=== PATIENT | male | born 1965 | race Two or more races ===

== ENCOUNTER 2022-12-26 00:29 | Inpatient (IN) | payer BC, MEDICAID ==
[~2022-12-26] VITALS: Ht 180.3 cm; Wt 102.0 kg
[2022-12-26 00:30] VITALS: PULSE 70; RESP 16; O2SAT 97
[2022-12-26 00:55] LABS: Basophils # (auto) 0.1 10 ^3/uL (0-0.2); Basophils % (auto) 0.9 % (0.0-2.0); Eosinophils # (auto) 0.4 10 ^3/uL (0-0.8); Eosinophils % (auto) 4.4 % (0.0-7.0); Hematocrit 48.7 % (41.0-53.0); Hemoglobin 16.7 g/dL (13.5-17.5); Lymphocytes # (auto) 4.2 10 ^3/uL (0.4-5.4); Lymphocytes % (auto) 47.9 % (10.0-50.0); Mean Corpuscular Hemoglobin 31.7 pg (28.0-32.0); Mean Corpuscular Hgb Conc. 34.3 g/dL (32.0-36.0); Mean Corpuscular Volume 92.3 fL (80.0-100.0); Monocytes # (auto) 0.6 10 ^3/uL (0-1.3); Monocytes % (auto) 7.3 % (0.0-12.0); Neutrophils # (auto) 3.4 10 ^3/uL (1.6-8.6); Neutrophils % (auto) 39.5 % (37.0-80.0); Nucleated Red Blood Cells % 0.1 %; Red Blood Cells 5.28 10^6/uL (4.5-5.90); Red Cell Distribution Width 13.3 % (11.8-14.3); White Blood Cell 8.7 10^3/uL (4.4-10.8)
[2022-12-26 01:09] LABS: INR 1.08 (0.9-1.15); Partial Thromboplastin Time 27.2 SEC (24.5-34.5); Prothrombin Time 11.3 sec (9.3-11.8)
[2022-12-26 01:56] LABS: Alanine Aminotransferase 27 U/L (7-40); Albumin 4.9 g/dL (3.2-4.8); Alkaline Phosphatase 106 U/L (46-116); Anion Gap 14 (5-15); Aspartate Aminotransferase 35 U/L (13-40); BUN/Creatinine Ratio 13.9 (10.0-20.0); Bilirubin, Total 0.9 mg/dL (0.2-1.0); Blood Urea Nitrogen 11 mg/dL (9-23); Calcium 9.4 mg/dL (8.7-10.4); Carbon Dioxide 19 mmol/L (20-30); Chloride 106 mmol/L (98-107); Glucose 108 mg/dL (74-106); Lipase 52 U/L (12-53); Magnesium 2.4 mg/dL (1.6-2.6); Potassium 3.8 mmol/L (3.5-5.1); Sodium 139 mmol/L (136-145); Total Protein 8.5 g/dL (5.7-8.2)
[2022-12-26] MEDS ORDERED: DOCUSATE SOD 100 MG CAP PO PRN (04:00)
[2022-12-26] MEDS ORDERED: ONDANSETRON HCL 4 MG/2 ML VIAL IV PRN (04:00)
[2022-12-26] MEDS ORDERED: HYDROcodone-ACET 5/325MG TAB PO PRN (04:00)
[2022-12-26] MEDS ORDERED: MORPHINE SULFATE INJ 2 MG/ml SYRG IV PRN ×2 (04:00→06:45)
[2022-12-26] MEDS ORDERED: ACETAMINOPHEN 325 MG TAB PO PRN (04:00)
[2022-12-26 04:44] LABS: Basophils # (auto) 0 10 ^3/uL (0-0.2); Basophils % (auto) 0.7 % (0.0-2.0); Eosinophils # (auto) 0.3 10 ^3/uL (0-0.8); Eosinophils % (auto) 4.7 % (0.0-7.0); Hematocrit 44.9 % (41.0-53.0); Hemoglobin 15.4 g/dL (13.5-17.5); Lymphocytes # (auto) 3.4 10 ^3/uL (0.4-5.4); Lymphocytes % (auto) 51.2 % (10.0-50.0); Mean Corpuscular Hemoglobin 31.6 pg (28.0-32.0); Mean Corpuscular Hgb Conc. 34.3 g/dL (32.0-36.0); Mean Corpuscular Volume 92.2 fL (80.0-100.0); Monocytes # (auto) 0.5 10 ^3/uL (0-1.3); Monocytes % (auto) 6.9 % (0.0-12.0); Neutrophils # (auto) 2.4 10 ^3/uL (1.6-8.6); Neutrophils % (auto) 36.5 % (37.0-80.0); Red Blood Cells 4.87 10^6/uL (4.5-5.90); Red Cell Distribution Width 13.5 % (11.8-14.3); White Blood Cell 6.6 10^3/uL (4.4-10.8)
[2022-12-26 05:44] LABS: Alanine Aminotransferase 28 U/L (7-40); Albumin 4.7 g/dL (3.2-4.8); Alkaline Phosphatase 102 U/L (46-116); Anion Gap 14 (5-15); Aspartate Aminotransferase 33 U/L (13-40); BUN/Creatinine Ratio 15.2 (10.0-20.0); Bilirubin, Total 0.9 mg/dL (0.2-1.0); Blood Urea Nitrogen 12 mg/dL (9-23); Calcium 9.3 mg/dL (8.7-10.4); Carbon Dioxide 19 mmol/L (20-30); Chloride 106 mmol/L (98-107); Glucose 106 mg/dL (74-106); Potassium 3.7 mmol/L (3.5-5.1); Sodium 139 mmol/L (136-145); Total Protein 8.3 g/dL (5.7-8.2)
[2022-12-26] MEDS: SODIUM CHLOR 0.9% PF (SALINE LOCK) 10ML VIAL/SYR IV SCH ×3 (06:11→21:05)
[2022-12-26] MEDS ORDERED: NITROGLYCERIN 0.4 MG SL TAB SL PRN (06:45)
[2022-12-26] MEDS ORDERED: ASPirin 81 mg TAB PO ONE (07:00)
[2022-12-26 08:01] VITALS: PULSE 91; RESP 13; O2SAT 93
[2022-12-26 08:04] LABS: Urine WBC None Seen /hpf (0 - 3)
[2022-12-26 08:29] LABS: Urine Bacteria NONE SEEN /hpf (None Seen); Urine Blood Negative /uL (Negative); Urine Clarity Clear (Clear); Urine Color Yellow (Yellow); Urine Protein, UAD Negative (Negative); Urine Specific Gravity 1.004 (1.001-1.035); Urine Urobilinogen Normal (Negative); Urine pH 5.5 (5.0-8.0)
[2022-12-26 19:50] VITALS: PULSE 81; RESP 19; O2SAT 96
[2022-12-27 05:05] LABS: Alanine Aminotransferase 24 U/L (7-40); Albumin 4.3 g/dL (3.2-4.8); Alkaline Phosphatase 98 U/L (46-116); Anion Gap 7 (5-15); Aspartate Aminotransferase 27 U/L (13-40); Bilirubin, Total 1.4 mg/dL (0.2-1.0); Blood Urea Nitrogen 12 mg/dL (9-23); Calcium 9.2 mg/dL (8.7-10.4); Carbon Dioxide 25 mmol/L (20-30); Chloride 106 mmol/L (98-107); Glucose 111 mg/dL (74-106); Sodium 138 mmol/L (136-145); Total Protein 7.8 g/dL (5.7-8.2)
[2022-12-27 05:06] LABS: Basophils # (auto) 0 10 ^3/uL (0-0.2); Basophils % (auto) 0.5 % (0.0-2.0); Eosinophils # (auto) 0.3 10 ^3/uL (0-0.8); Eosinophils % (auto) 4.3 % (0.0-7.0); Hematocrit 47.8 % (41.0-53.0); Hemoglobin 16.5 g/dL (13.5-17.5); Lymphocytes # (auto) 2.7 10 ^3/uL (0.4-5.4); Lymphocytes % (auto) 38.9 % (10.0-50.0); Mean Corpuscular Hemoglobin 31.6 pg (28.0-32.0); Mean Corpuscular Hgb Conc. 34.4 g/dL (32.0-36.0); Mean Corpuscular Volume 91.9 fL (80.0-100.0); Monocytes # (auto) 0.5 10 ^3/uL (0-1.3); Monocytes % (auto) 7.2 % (0.0-12.0); Neutrophils # (auto) 3.5 10 ^3/uL (1.6-8.6); Neutrophils % (auto) 49.1 % (37.0-80.0); Nucleated Red Blood Cells % 0.2 %; Red Cell Distribution Width 13.9 % (11.8-14.3)
[2022-12-27] MEDS: SODIUM CHLOR 0.9% PF (SALINE LOCK) 10ML VIAL/SYR IV SCH ×3 (05:52→22:51)
[2022-12-27 09:44] VITALS: PULSE 76; RESP 17; O2SAT 96
[2022-12-27] MEDS: ASPirin 81 mg TAB PO SCH (12:03)
[2022-12-27] MEDS ORDERED: CARVEDILOL 3.125 MG TAB PO ONE (12:15)
[2022-12-27 22:00] VITALS: BP 164/81; PULSE 63; RESP 16; TEMP 98; O2SAT 90
[2022-12-27] MEDS: CARVEDILOL 3.125 MG TAB PO SCH (22:52)
[2022-12-28] VITALS (7 sets, daily range): BP systolic 128–145; BP diastolic 71–82; PULSE 57–88; RESP 16–20; TEMP 36.7; O2SAT 92–96
[2022-12-28] MEDS: SODIUM CHLOR 0.9% PF (SALINE LOCK) 10ML VIAL/SYR IV SCH ×3 (06:09→22:14)
[2022-12-28 07:25] LABS: Triglycerides 143 mg/dL (< 150)
[2022-12-28 07:26] LABS: LDL Cholesterol 96 mg/dL (< 100)
[2022-12-28 07:27] LABS: Cholesterol 134 mg/dL (< 200); HDL Cholesterol 27 mg/dL (40-59)
[2022-12-28] MEDS: ASPirin 81 mg TAB PO SCH (09:44)
[2022-12-28] MEDS: CARVEDILOL 3.125 MG TAB PO SCH ×2 (09:45→22:07)
[2022-12-28] MEDS: LISINOPRIL 10 MG TAB PO SCH (09:46)
[2022-12-28 10:09] LABS: Hepatitis B Surface Antigen Negative (Negative)
[2022-12-28 10:31] LABS: Hepatitis C Antibody Negative (Negative)
[2022-12-28] MEDS ORDERED: ATORVASTATIN 20 MG TAB PO SCH (22:00)
[2022-12-29 05:00] VITALS: BP 130/78; PULSE 58; RESP 18; TEMP 98.6; O2SAT 96
[2022-12-29] MEDS: SODIUM CHLOR 0.9% PF (SALINE LOCK) 10ML VIAL/SYR IV SCH ×2 (07:13→13:35)
[2022-12-29 08:00] VITALS: BP 130/71; PULSE 60; RESP 16; TEMP 36.7; O2SAT 96
[2022-12-29 09:00] VITALS: BP 127/72; PULSE 66; RESP 20; TEMP 98.7; O2SAT 94
[2022-12-29] MEDS: LISINOPRIL 10 MG TAB PO SCH (09:59)
[2022-12-29] MEDS: ASPirin 81 mg TAB PO SCH (09:59)
[2022-12-29] MEDS: CARVEDILOL 3.125 MG TAB PO SCH (10:00)
[2022-12-29] MEDS ORDERED: LISI10TA34 PO (12:10)
[2022-12-29] MEDS ORDERED: CARV6.25 PO (12:10)
[2022-12-29 13:00] VITALS: BP 141/78; PULSE 54; RESP 20; TEMP 97.7; O2SAT 96
== END 2022-12-29 16:05 | disposition home or self-care (01) | DRG 291 ==
LOC: ER 00:29 → EDBD 00:29 → TELE 06:42 → TELE-EAST 12-27 21:31
PROVIDERS: ADMIT Nurse Practitioner Family; ATTEND Internal Medicine Geriatric Medicine
DX: I11.0 Hypertensive heart disease with heart failure (principal); I50.21 Acute systolic (congestive) heart failure; J98.11 Atelectasis; R07.89 Other chest pain; E66.9 Obesity, unspecified; F32.A Depression, unspecified
CPT/HCPCS: 36415; 71045; 80053; 80061; 81001; 83036; 83605; 83690; 83735; 83880; 84443; 84484; 85025; 85610; 85730; 86803; 87340; 93005; 93306; G0378